=== PATIENT | male | born 1945 | race Caucasian/White ===

== ENCOUNTER 2022-01-24 14:52 | Emergency (ER) | payer MEDICARE, OTHER ==
[~2022-01-24] VITALS: Ht 175 cm; Wt 86.0 kg
[2022-01-24] MEDS ORDERED: NS IV 1000 ML 1,000 ML IV SCH (15:30)
--- NOTE | 2022-01-24 15:31 | ED General ---
General Chief Complaint: Glucose Problems Stated Complaint: HIGH BLOOD SUGAR 321 Source of Information: Patient Exam Limitations: No Limitations History of Present Illness Date Seen by Provider: Jan 24, 2022 Time Seen by Provider: 15:15 Initial Comments Patient is a 76-year-old male who presents to the emergency department today with a chief complaint of high blood sugars over the last 24 hours. Patient states that he started feeling not well 48 hours ago. He did work outside for about 4 hours on Monday. Monday morning he got up and fixed himself of breakfast for Father's Day immediately afterwards became nauseated and felt like he was going to pass out. He felt lightheaded which prompted him to start isaiah ing his blood sugars. They normally run in the 140s, 150s. He does state that over the last several months his hemoglobin A1c has been climbing, as high as 9. [facility] and was told if his sugar stayed consistently above 300 he needed to be evaluated. He is COVID vaccinated and fully boosted. He denies sick contacts. He is not nauseated now, no pain. He does have some joint discomfort is specifically in his hands. No problems with urination. He has chronic diarrhea for the last 3 years but states over the last couple of days its been better. No black or bloody stools. He is currently being evaluated by a urologist for prostate cancer, pending prostate biopsy on February 18. No rashes or swelling. He feels a little short of breath and he has a significantly dry mouth and feels like he cannot get enough water. No earache, runny nose or sore throat. He does have some right-sided neck pain that he states has been persistent for about the last week. He does have previous cardiac stent. This was placed 15 years ago. All other review of systems reviewed and negative except as stated. Timing/Duration: 1-2 Days Severity: Moderate Associated Systoms: Malaise, Syncope (Nursing to), Weakness, Other (Joint pain) Allergies and Home Medications Allergies Coded Allergies: Penicillins (Verified Allergy, Unknown, 01/24/22) metformin (Verified Allergy, Unknown, 01/24/22) Patient Home Medication List Home Medication List Reviewed: Yes Review of Systems Review of Systems Constitutional: see HPI EENTM: other (Dry mouth) Respiratory: no symptoms reported Cardiovascular: no symptoms reported Gastrointestinal: no symptoms reported Genitourinary: no symptoms reported Musculoskeletal: other (Right-sided muscular neck pain) Skin: no symptoms reported Psychiatric/Neurological: No Symptoms Reported All Other Systems Reviewed Negative Unless Noted: Yes Physical Exam Vital Signs Capillary Refill : Height, Weight, BMI Height: '" Weight: lbs. oz. kg; BMI Method: General Appearance: No Apparent Distress, WD/WN Eyes: Bilateral Eye Normal Inspection, Bilateral Eye PERRL, Bilateral Eye EOMI HEENT: Other (Dry mucous) Neck: Full Range of Motion, Normal Inspection, Non Tender, Supple Respiratory: Lungs Clear, Normal Breath Sounds, No Accessory Muscle Use, No Respiratory Distress Cardiovascular: Regular Rate, Rhythm, Normal Peripheral Pulses Gastrointestinal: Normal Bowel Sounds, Non Tender, Soft Extremity: Normal Inspection, Normal Range of Motion, Non Tender, No Pedal Edema Neurologic/Psychiatric: Alert, Oriented x3, No Motor/Sensory Deficits, Normal Mood/Affect, credit investigator II-XII Norm as Tested Skin: Normal Color, Warm/Dry Progress/Results/Core Measures Suspected Sepsis SIRS Temperature: Pulse: Respiratory Rate: Laboratory Tests 01/24/22 15:18: White Blood Count 5.9 Blood Pressure / Mean: Laboratory Tests 01/24/22 15:18: Creatinine 1.49H, Platelet Count 227, Total Bilirubin 0.5 Results/Orders Lab Results Laboratory Tests Test 01/24/22 15:17 01/24/22 15:18 01/24/22 15:48 01/24/22 16:41 Range/Units Glucometer 273 H 214 H 70-110 MG/DL White Blood Count 5.9 4.3-11.0 10^3/uL Red Blood Count 4.13 L 4.30-5.52 10^6/uL Hemoglobin 12.3 L 13.3-17.7 g/dL Hematocrit 37 L 40-54 % Mean Corpuscular Volume 90 80-99 fL Mean Corpuscular Hemoglobin 30 25-34 pg Mean Corpuscular Hemoglobin Concent 33 32-36 g/dL Red Cell Distribution Width 14.1 10.0-14.5 % Platelet Count 227 130-400 10^3/uL Mean Platelet Volume 10.2 9.0-12.2 fL Immature Granulocyte % (Auto) 1 % Neutrophils (%) (Auto) 59 42-75 % Lymphocytes (%) (Auto) 25 12-44 % Monocytes (%) (Auto) 11 0-12 % Eosinophils (%) (Auto) 2 0-10 % Basophils (%) (Auto) 1 0-10 % Neutrophils # (Auto) 3.5 1.8-7.8 X 10^3 Lymphocytes # (Auto) 1.5 1.0-4.0 X 10^3 Monocytes # (Auto) 0.7 0.0-1.0 X 10^3 Eosinophils # (Auto) 0.1 0.0-0.3 10^3/uL Basophils # (Auto) 0.1 0.0-0.1 10^3/uL Immature Granulocyte # (Auto) 0.1 0.0-0.1 10^3/uL Sodium Level 132 L 135-145 MMOL/L Potassium Level 4.5 3.6-5.0 MMOL/L Chloride Level 100 98-107 MMOL/L Carbon Dioxide Level 22 21-32 MMOL/L Anion Gap 10 5-14 MMOL/L Blood Urea Nitrogen 23 H 7-18 MG/DL Creatinine 1.49 H 0.60-1.30 MG/DL Estimat Glomerular Filtration Rate 48 BUN/Creatinine Ratio 15 Glucose Level 276 H 70-105 MG/DL Calcium Level 9.4 8.5-10.1 MG/DL Corrected Calcium 9.3 8.5-10.1 MG/DL Total Bilirubin 0.5 0.1-1.0 MG/DL Aspartate Amino Transf (AST/SGOT) 13 5-34 U/L Alanine Aminotransferase (ALT/SGPT) 18 0-55 U/L Alkaline Phosphatase 48 40-136 U/L Total Protein 7.0 6.4-8.2 GM/DL Albumin 4.1 3.2-4.5 GM/DL SARS-CoV-2 RNA (RT-PCR) Not Detected Not Detecte Urine Color YELLOW Urine Clarity CLEAR Urine pH 5.5 5-9 Urine Specific [place] <=1.005 1.016-1.022 Urine Protein NEGATIVE NEGATIVE Urine Glucose (UA) 3+ H NEGATIVE Urine Ketones NEGATIVE NEGATIVE Urine Nitrite NEGATIVE NEGATIVE Urine Bilirubin NEGATIVE NEGATIVE Urine Urobilinogen 0.2 < = 1.0 MG/DL Urine Leukocyte Esterase NEGATIVE NEGATIVE Urine RBC (Auto) NEGATIVE NEGATIVE Urine RBC NONE /HPF Urine WBC NONE /HPF Urine Squamous Epithelial Cells NONE /HPF Urine Crystals NONE /LPF Urine Bacteria NEGATIVE /HPF Urine Casts NONE /LPF Urine Mucus NEGATIVE /LPF Urine Culture Indicated NO My Orders Orders - CHAPITO OWEN MD Ekg Tracing (01/24/22 15:19) Ed Iv/Invasive Line Start (01/24/22 15:24) Cbc With Automated Diff (01/24/22 15:24) Comprehensive Metabolic Panel (01/24/22 15:24) Ua Culture If Indicated (01/24/22 15:24) Covid 19 Inhouse Test (01/24/22 15:24) Isolation Central Supply Req (01/24/22 15:24) Ns Iv 1000 Ml (Sodium Chloride 0.9%) (01/24/22 15:30) Accucheck Stat ONCE (01/24/22 16:38) Vital Signs/I&O Capillary Refill : Progress Note : Time: 16:55 Progress Note Patient rechecked, feels good, completed a liter of fluids. Blood sugar is 214. No signs of occult infection on laboratory evaluation. No urinary tract infection no elevated white blood cell count. He does have chronic kidney disease that is known. Patient states as far as he knows his last creatinine was about 1.5. So i am comfortable with the levels we found today. His COVID test is negative. We talked about return precautions. He verbalized understanding of his plan of care and is agreeable with it. He will follow-up with his primary care physician this week. All questions were sought and answered ECG Initial ECG Impression Date: Jan 24, 2022 Initial ECG Impression Time: 15:23 Initial ECG Rate: 71 Initial ECG Rhythm: Normal Sinus Initial ECG Intervals: Normal Initial ECG Impression: Normal Departure Impression Primary Impression: Type 2 diabetes mellitus Qualified Codes: E11.65 - Type 2 diabetes mellitus with hyperglycemia Disposition: 01 HOME, SELF-CARE Condition: Improved Departure-Patient Inst. Decision time for Depature: 16:56 Referrals: NO,LOCAL PHYSICIAN (PCP/Family) Primary Care Physician Patient Instructions: Type 2 Diabetes Add. Discharge Instructions: Continue your daily medications as previously prescribed. Check your blood sugar twice daily and more if you are symptomatic. Return to the emergency department for new, concerning or emergent complaints or if you have worsening symptoms with high blood sugar. Drink plenty of fluids to stay well-hydrated. Watch your carbohydrate intake. Follow-up with your primary care physician this week. CHAPITO OWEN MD Jan 24, 2022 15:31
[2022-01-24 15:37] LABS: BASOPHILS # (AUTO) 0.1 10^3/uL (0.0-0.1); BASOPHILS % (AUTO) 1 % (0-10); EOSINOPHILS # (AUTO) 0.1 10^3/uL (0.0-0.3); EOSINOPHILS % (AUTO) 2 % (0-10); HEMATOCRIT 37 % (40-54); HEMOGLOBIN 12.3 g/dL (13.3-17.7); LYMPHOCYTES # (AUTO) 1.5 X 10^3 (1.0-4.0); LYMPHOCYTES % (AUTO) 25 % (12-44); MEAN CORPUSCULAR HEMOGLOBIN 30 pg (25-34); MEAN CORPUSCULAR HGB CONC 33 g/dL (32-36); MEAN CORPUSCULAR VOLUME 90 fL (80-99); MEAN PLATELET VOLUME 10.2 fL (9.0-12.2); MONOCYTES # (AUTO) 0.7 X 10^3 (0.0-1.0); MONOCYTES % (AUTO) 11 % (0-12); NEUTROPHILS # (AUTO) 3.5 X 10^3 (1.8-7.8); NEUTROPHILS % (AUTO) 59 % (42-75); PLATELET COUNT 227 10^3/uL (130-400); WHITE BLOOD COUNT 5.9 10^3/uL (4.3-11.0)
[2022-01-24 15:40] LABS: ALBUMIN 4.1 GM/DL (3.2-4.5); POTASSIUM 4.5 MMOL/L (3.6-5.0)
[2022-01-24 15:41] LABS: CALCIUM 9.4 MG/DL (8.5-10.1)
[2022-01-24 15:44] LABS: BILIRUBIN,TOTAL 0.5 MG/DL (0.1-1.0)
[2022-01-24 15:46] LABS: CREATININE SERUM 1.49 MG/DL (0.60-1.30)
[2022-01-24 16:09] LABS: BILIRUBIN,URINE NEGATIVE (NEGATIVE); CLARITY,URINE CLEAR; COLOR,URINE YELLOW; GLUCOSE, URINE (UA) 3+ (NEGATIVE); KETONES,URINE NEGATIVE (NEGATIVE); LEUKOCYTE ESTERASE ,URINE NEGATIVE (NEGATIVE); NITRITE,URINE NEGATIVE (NEGATIVE); PH,URINE 5.5 (5-9); PROTEIN,URINE NEGATIVE (NEGATIVE)
[2022-01-24 16:34] LABS: BACTERIA,URINE NEGATIVE /HPF
[2022-01-24 17:20] VITALS: BP 155/80
== END 2022-01-24 17:20 | disposition home or self-care (01) ==
LOC: ER 14:54
DX: E11.9 Type 2 diabetes mellitus without complications (principal); Z20.822 Contact with and (suspected) exposure to COVID-19
CPT/HCPCS: 36415; 80053; 81000; 82947; 85025; 87636; 93005